=== PATIENT | male | born 1965 | race Caucasian/White ===

== ENCOUNTER → 2024-01-13 07:18 | Outpatient (REF) | payer OTHER, SELFPAY | LOC: MRI 07:18 | PROVIDERS: ATTENDING PHYSICIAN Physician Assistant; FAMILY PHYSICIAN Family Medicine | DX: I72.8 Aneurysm of other specified arteries (principal) | CPT/HCPCS: 72198; 74185; A9585 ==

== ENCOUNTER → 2024-02-10 09:11 | Outpatient (REF) | payer OTHER, SELFPAY | LOC: RAD 09:11 | PROVIDERS: ATTENDING PHYSICIAN Family Medicine | DX: R10.31 Right lower quadrant pain (principal) | CPT/HCPCS: 73502 ==

== ENCOUNTER → 2024-04-06 07:39 | Outpatient (REF) | payer OTHER, SELFPAY | LOC: MRI 3T 07:39 | PROVIDERS: ATTENDING PHYSICIAN Specialist; FAMILY PHYSICIAN Family Medicine | DX: M25.551 Pain in right hip (principal) | CPT/HCPCS: 73721 ==

== ENCOUNTER → 2024-04-15 09:30 | Outpatient (REF) | payer OTHER, SELFPAY | LOC: HWRAD 09:30 | PROVIDERS: ATTENDING PHYSICIAN Family Medicine | DX: F17.210 Nicotine dependence, cigarettes, uncomplicated (principal) | CPT/HCPCS: 71271 ==

== ENCOUNTER → 2024-04-28 06:17 | Day surgery (SDC) | payer OTHER, SELFPAY | LOC: GI 06:17 | PROVIDERS: ATTENDING PHYSICIAN Specialist | DX: Z12.11 Encounter for screening for malignant neoplasm of colon (principal); D12.3 Benign neoplasm of transverse colon; K63.89 Other specified diseases of intestine; K64.8 Other hemorrhoids; K29.50 Unspecified chronic gastritis without bleeding; K31.A0 Gastric intestinal metaplasia, unspecified; K31.89 Other diseases of stomach and duodenum; R12 Heartburn; Z86.0101 Personal history of adenomatous and serrated colon polyps | CPT/HCPCS: 45385; 43239; 88305; 88342 ==

== ENCOUNTER 2024-05-09 19:02 | Outpatient (RCR) | payer OTHER, SELFPAY | END 2024-05-09 23:59 | disposition home or self-care (01) | LOC: RPT 19:02 | PROVIDERS: ATTENDING PHYSICIAN Physician Assistant Surgical; FAMILY PHYSICIAN Family Medicine | DX: M16.11 Unilateral primary osteoarthritis, right hip (principal); M76.01 Gluteal tendinitis, right hip; Z73.6 Limitation of activities due to disability; M62.81 Muscle weakness (generalized) | CPT/HCPCS: 97110; 97162; 97535 ==

== ENCOUNTER 2024-12-05 10:11 | Emergency (ER) | payer SELFPAY ==
[2024-12-05 10:13] VITALS: BP 156/91
--- NOTE | 2024-12-05 13:44 | ED.GENMED ---
History of Present Illness
General
Chief Complaint: Musculo-Skeletal Complaint
Source: patient
Exam Limitations: none
Time Seen by Provider: 12/05/24 13:29
Nursing documentation reviewed up to this point in time: agreed with
Past History
Past History
ED Past Medical History: HTN and Other (Kidney stone)
ED Past Surgical History: Appendectomy and Other (Banding of hemorrhoids)
Social History
Tobacco: Smoker
Alcohol: Occasional
Drug: None
Personal:
Family History
Family History: Negative Diabetes, Hypertension, Early CAD, Asthma or Cancer
Course
Vital Signs
Initial and Last Documented VS:
Initial Vital Signs
Temp Pulse Resp Pulse Ox
98.2 F 94 18 98
12/05/24 10:12 12/05/24 10:12 12/05/24 10:12 12/05/24 10:12
Last Documented Vital Signs
Temp Pulse Resp BP Pulse Ox
98.2 F 94 18 156/91 98
12/05/24 10:12 12/05/24 10:12 12/05/24 10:12 12/05/24 10:13 12/05/24 10:12
*Pulse Oximetry
SaO2: 98
Oxygen Mode of Delivery: Room air
ED Attending Note
-
Portions of this chart may have been created with voice recognition software.� Occasional wrong word or��sound alike� substitutions may have occurred due to the inherent limitations of voice recognition software.
Discharge Plan
Departure
Prescriptions:
No Action
hydrochlorothiazide 25 MG tablet
25 mg PO HS
multivitamin Tablet
1 tab PO DAILY
atorvastatin 20 mg Tablet
20 mg PO HS
losartan 100 mg Tablet
100 mg PO HS
Referrals:
Socorro Campos MD [Family Provider, Family Practice]
Discharge Date and Time
Print Language: [place]
--- NOTE | 2024-12-05 13:46 | ED.MUSCINJ ---
HPI-Injury
General
Chief Complaint: Musculo-Skeletal Complaint
Source: patient
Exam Limitations: none
Time Seen by Provider: 12/05/24 13:29
Nursing documentation reviewed up to this point in time: agreed with
History of Present Illness-Injury
Is this injury a work related problem?: Yes
Is pt an associate of [facility]?: No
Initial Injury comments:
Note:
CHIEF COMPLAINT(S)
Right knee pain
HISTORY OF PRESENT ILLNESS
The patient is a 60-year-old male presenting with right knee pain following an incident earlier today. The patient reports twisting his knee at approximately 9:00 AM while at work. The right knee pain is described as occurring behind the knee and
sometimes in front on the left when stepping or taking a stair. The patient denies any recent trauma or new injuries to the knee. There is no history of surgery on the right knee, although an oil program compliance specialist previously administered an
injection in the right knee. The patient has had a previous arthroscopic procedure on the left knee, but no new injury is reported on that side. Examination reveals no joint or ligament laxity, and the patient has tenderness on lateral anterior
right knee.
PAST SURGICAL HISTORY
Arthroscopy on the left knee, no surgery on the right knee.
PHYSICAL EXAM
- Musculoskeletal: Mild tenderness inferior/medial to patella of the right knee, no joint or ligament laxity.
PLAN
Order an X-ray of the right knee to evaluate for any fractures or other acute changes.
DIFFERENTIAL DIAGNOSIS
The Differential Diagnosis includes, in no particular order and is not limited to:
- Knee sprain
- Meniscal tear
- Ligamentous injury
- Osteoarthritis exacerbation
- Patellar tendonitis
- Bursitis
- Fracture
- Gout flare
- Rheumatoid arthritis
- [place]-Schlatter disease
CARE-UPDATE
12/05/24 - 14:52
Review of the right knee x-ray shows no acute findings. The patient exhibits a full range of motion despite ligamentous tenderness noted upon examination. Discharge plan includes a [id number] note with restrictions: no lifting over 25 pounds and
avoidance of extreme bending for one week. The patient is advised to follow up with orthopedics for further evaluation and management.
Disposition:
SUMMARY OF ENCOUNTER
The patient is a 60-year-old male who presented to the emergency department with right knee pain after twisting his knee at work earlier today. The pain was localized to behind and sometimes in front of the knee. The patient was evaluated for
potential injuries given the nature of the incident.
DISPOSITION
The patient was discharged home with instructions to follow up with orthopedics.
PLAN
An X-ray of the right knee was ordered to evaluate for any fractures or acute changes.
PATIENT EDUCATION AND COUNSELING
The patient was given return precautions in case symptoms worsen or new symptoms develop.
FOLLOW-UP INSTRUCTIONS
The patient is to follow up with an oil program compliance specialist.
MEDICATION RECONCILIATION
There were no medications given or prescribed during this encounter.
MEDICAL DECISION MAKING
1. Number & Complexity of Problems: Chronic conditions affecting care: Previous arthroscopy on left knee, injection in right knee.
2. Data Reviewed: Category 1 data was reviewed, as an X-ray of the right knee was ordered and interpreted.
3. Risk: Consideration of admission/observation was made due to complexity/risk. However, outpatient management is appropriate based on reassuring work-up, stable condition, and planned orthopedic follow-up.
PATHOLOGIES TO CONSIDER
- Meniscal tear
- Ligamentous injury
- Fracture
Past History
Past History
ED Past Medical History: HTN and Other (Kidney stone)
ED Past Surgical History: Appendectomy and Other (Banding of hemorrhoids)
Social History
Tobacco: Smoker
Alcohol: Occasional
Drug: None
Personal:
Family History
Family History: Negative Diabetes, Hypertension, Early CAD, Asthma or Cancer
Phy Exam
Physical Exam
Physical Exam:
.
Injury Course
Orders/Labs/Results
Orders:
Orders
12/05/24 13:45
Knee, Right 4 or More Views [CR Knee- Right 4 Or More View*] Urgent
Comment:
Reason For Exam: right knee pain, twisted at work
12/05/24 14:56
Laurent Wrap Right-Treatment ONCE
*Pulse Oximetry
SaO2: 98
Oxygen Mode of Delivery: Room air
Patient hypoxic: no
*Critical Care Note
Total Time (30-74mins, 75-104mins- exclusive of procedures): Not Applicable
ED Attending Note
-
Portions of this chart may have been created with voice recognition software.� Occasional wrong word or��sound alike� substitutions may have occurred due to the inherent limitations of voice recognition software.
Discharge Plan
Departure
Patient Disposition: Home (Routine Discharge)
Date of Disposition: 12/05/24
Time of Disposition: 14:48
Patient with high blood pressure during this ER visit?: Yes
Condition: Good
Discharge Problem:
Right knee sprain
Instructions: Knee Sprain (DC), BLOOD PRESSURE
Prescriptions:
No Action
hydrochlorothiazide 25 MG tablet
25 mg PO HS
multivitamin Tablet
1 tab PO DAILY
atorvastatin 20 mg Tablet
20 mg PO HS
losartan 100 mg Tablet
100 mg PO HS
Referrals:
Collins Cuevas MD [Active, Orthopedics] - Call in 1-3 days for appt
Socorro Campos MD [Family Provider, Family Practice]
Stand Alone Forms: Return to Work
Interventions
Interventions:
*Nursing Disposition Last Done: 12/05/24 15:30
ED-Musculoskeletal Assessment Last Done: 12/05/24 15:29
Discharge Date and Time
Discharge Date/Time: 12/05/24 15:31
Print Language: [place]
[2024-12-05 15:29] VITALS: BP 152/86
== END 2024-12-05 15:31 | disposition home or self-care (01) ==
LOC: EMR 10:11
PROVIDERS: EMERGENCY PHYSICIAN Emergency Medicine; FAMILY PHYSICIAN Family Medicine
DX: S83.91XA Sprain of unspecified site of right knee, initial encounter (principal); X50.1XXA Overexertion from prolonged static or awkward postures, initial encounter; I10 Essential (primary) hypertension; F17.200 Nicotine dependence, unspecified, uncomplicated
CPT/HCPCS: 99283; 73564

== ENCOUNTER → 2025-02-15 12:22 | Outpatient (REF) | payer OTHER, SELFPAY | LOC: PAVMRI 12:22 | PROVIDERS: ATTENDING PHYSICIAN Surgery Vascular Surgery; FAMILY PHYSICIAN Family Medicine | DX: I72.8 Aneurysm of other specified arteries (principal) | CPT/HCPCS: 74185; A9585 ==

== ENCOUNTER → 2025-04-19 07:59 | Outpatient (REF) | payer OTHER, SELFPAY | LOC: HWRAD 07:59 | PROVIDERS: ATTENDING PHYSICIAN Family Medicine | DX: F17.210 Nicotine dependence, cigarettes, uncomplicated (principal) | CPT/HCPCS: 71271 ==

== ENCOUNTER → 2025-05-03 07:07 | Outpatient (REF) | payer OTHER, SELFPAY | LOC: PAVMRI 07:07 | PROVIDERS: ATTENDING PHYSICIAN Orthopaedic Surgery; FAMILY PHYSICIAN Family Medicine | DX: M54.12 Radiculopathy, cervical region (principal) | CPT/HCPCS: 72141 ==